=== PATIENT | female | born 1965 | race African-American/Black ===

== ENCOUNTER 2017-03-28 17:22 | Emergency (ER) | payer MEDICAID ==
[~2017-03-28] VITALS: Ht 149.9 cm; Wt 68.0 kg
[2017-03-28] MEDS ORDERED: IBUPROFEN 400MG TABLET PO ONE (18:15)
[2017-03-28 18:35] LABS: BASOPHILS % 0.9 % (0.0-2.0); EOSINOPHILS % 3.3 % (0.0-5.0); HEMATOCRIT. 43.2 % (36.0-48.0); LYMPHOCYTES % 32.3 % (20.0-50.0); MEAN CORPUSCULAR VOLUME 86.3 fL (81.0-99.0); MEAN PLATELET VOLUME 9.2 fl (7.4-10.4); MONOCYTES % 7.8 % (2.0-8.0); NEUTROPHILS % 55.7 % (40.0-76.0); PLATELET 285 x1000/uL (130-400); RED CELL DISTRIBUTION WIDTH 14.1 % (11.6-14.6)
[2017-03-28 18:52] LABS: CARBON DIOXIDE 28 mEq/L (21-32); CHLORIDE 106 mEq/L (98-107); TROPONIN I < 0.02 ng/mL (0.00-0.04)
[2017-03-28] MEDS ORDERED: HYDROCODONE/ACETAMINOPHEN 5/325MG TABLET PO ONE (20:00)
[2017-03-28 20:08] VITALS: BP 103/81
== END 2017-03-28 20:09 | disposition home or self-care (01) ==
LOC: ER 17:27
DX: M54.12 Radiculopathy, cervical region (principal); M47.892 Other spondylosis, cervical region; R07.89 Other chest pain; M19.90 Unspecified osteoarthritis, unspecified site; Z98.890 Other specified postprocedural states; F17.210 Nicotine dependence, cigarettes, uncomplicated
CPT/HCPCS: 36415; 71010; 72125; 80053; 84484; 85025; 93005; 99285